=== PATIENT | female | born 1990 | race Two or more races ===

== ENCOUNTER 2021-05-23 07:10 | Observation (INO) | payer BC, MEDICAID ==
[2021-05-23] MEDS ORDERED: PRENCAP87 OR (09:01)
== END 2021-05-23 09:55 | disposition home or self-care (01) ==
LOC: LDRP 08:07
PROVIDERS: ADMIT Obstetrics & Gynecology; ATTEND Obstetrics & Gynecology
DX: O40.3XX0 Polyhydramnios, third trimester, not applicable or unspecified (principal); Z3A.36 36 weeks gestation of pregnancy
CPT/HCPCS: 59025; 76818; 81002; 82948; G0378; G0379

== ENCOUNTER 2021-05-30 08:35 | Observation (INO) | payer MEDICAID ==
[~2021-05-30] VITALS: Ht 154.9 cm; Wt 113.4 kg
[~2021-05-30 08:35] MED LIST: PRENCAP87 OR
== END 2021-05-30 09:38 | disposition home or self-care (01) ==
LOC: LDRP 08:35
PROVIDERS: ADMIT Obstetrics & Gynecology; ATTEND Obstetrics & Gynecology
DX: O40.3XX0 Polyhydramnios, third trimester, not applicable or unspecified (principal); Z3A.37 37 weeks gestation of pregnancy
CPT/HCPCS: 59025; 76818; 81002; G0378; G0379

== ENCOUNTER 2021-06-02 09:00 | Observation (INO) | payer MEDICAID ==
[~2021-06-02] VITALS: Ht 154.9 cm; Wt 113.4 kg
== END 2021-06-02 10:35 | disposition home or self-care (01) ==
LOC: LDRP 09:00
PROVIDERS: ADMIT Obstetrics & Gynecology; ATTEND Obstetrics & Gynecology
DX: O40.3XX0 Polyhydramnios, third trimester, not applicable or unspecified (principal); Z3A.38 38 weeks gestation of pregnancy
CPT/HCPCS: 59025; 76818; 81002; 94760; G0378

== ENCOUNTER 2021-06-06 08:58 | Observation (INO) | payer MEDICAID | END 2021-06-06 10:10 | disposition home or self-care (01) | LOC: LDRP 08:58 | PROVIDERS: ADMIT Obstetrics & Gynecology; ATTEND Obstetrics & Gynecology | DX: O40.3XX0 Polyhydramnios, third trimester, not applicable or unspecified (principal); Z3A.38 38 weeks gestation of pregnancy | CPT/HCPCS: 59025; 76818; 81002; G0378; G0379 ==

== ENCOUNTER 2021-06-10 08:19 | Observation (INO) | payer MEDICAID ==
[~2021-06-10] VITALS: Ht 154.9 cm; Wt 113.9 kg
== END 2021-06-10 11:12 | disposition home or self-care (01) ==
LOC: LDRP 09:20
PROVIDERS: ADMIT Obstetrics & Gynecology; ATTEND Obstetrics & Gynecology
DX: O40.3XX0 Polyhydramnios, third trimester, not applicable or unspecified (principal); Z3A.39 39 weeks gestation of pregnancy
CPT/HCPCS: 59025; 76818; 81002; 94760; G0378

== ENCOUNTER 2021-06-13 07:53 | Observation (INO) | payer MEDICAID | END 2021-06-13 09:55 | disposition home or self-care (01) | LOC: LDRP 08:14 | PROVIDERS: ADMIT Obstetrics & Gynecology; ATTEND Obstetrics & Gynecology | DX: O40.3XX0 Polyhydramnios, third trimester, not applicable or unspecified (principal); Z3A.39 39 weeks gestation of pregnancy | CPT/HCPCS: 59025; 76818; 81002; G0378; G0379 ==

== ENCOUNTER 2021-06-16 08:00 | Observation (INO) | payer MEDICAID | END 2021-06-16 09:59 | disposition home or self-care (01) | LOC: LDRP 08:00 | PROVIDERS: ADMIT Obstetrics & Gynecology; ATTEND Obstetrics & Gynecology | DX: O36.8330 Maternal care for abnormalities of the fetal heart rate or rhythm, third trimester, not applicable or unspecified (principal); O48.0 Post-term pregnancy; Z3A.40 40 weeks gestation of pregnancy | CPT/HCPCS: 59025; 76818; 81002; 94760; G0378 ==

== ENCOUNTER 2021-06-18 09:20 | Observation (INO) | payer MEDICAID ==
[~2021-06-18] VITALS: Ht 157.5 cm; Wt 116.1 kg
== END 2021-06-18 10:47 | disposition home or self-care (01) ==
LOC: LDRP 09:20
PROVIDERS: ADMIT Obstetrics & Gynecology; ATTEND Obstetrics & Gynecology
DX: O48.0 Post-term pregnancy (principal); O40.3XX0 Polyhydramnios, third trimester, not applicable or unspecified; O62.9 Abnormality of forces of labor, unspecified; Z3A.40 40 weeks gestation of pregnancy
CPT/HCPCS: 59025; 76818; 81002; 94760; G0378; G0379

== ENCOUNTER 2021-06-19 01:44 | Inpatient (IN) | payer MEDICAID ==
[~2021-06-19] VITALS: Ht 154.9 cm; Wt 116.1 kg
[2021-06-19] MEDS ORDERED: DERMOPLAST 60ML BOTTLE TOP PRN (02:00)
[2021-06-19] MEDS ORDERED: PENICILLIN G POT 5MIL/D5 50ML 50 ML IV ONE (02:00)
[2021-06-19] MEDS ORDERED: WITCH HAZEL-GLYCERIN PAD TOP PRN (02:00)
[2021-06-19] MEDS ORDERED: LIDOCAINE 2%HCL (LOCAL ANESTH.) INJ 20ML MDV IJ PRN (02:00)
[2021-06-19] MEDS ORDERED: PHISODERM TOP SOLN 240ML BTL TOP PRN (02:00)
[2021-06-19] MEDS ORDERED: LACT. RINGERS/OXYTOCIN 20UNITS 500 ML IV ONE (02:00)
[2021-06-19] MEDS ORDERED: BUTORPHANOL TARTRATE 2 MG/1 ML VIAL IV PRN (02:00)
[2021-06-19] MEDS ORDERED: LACTATED RINGER'S 1,000 ML IV SCH (02:00)
[2021-06-19] MEDS ORDERED: LACT. RINGERS/OXYTOCIN 20UNITS 1,000 ML IV SCH (02:00)
[2021-06-19] MEDS ORDERED: PROMETHAZINE HCL 25 MG/ML 1ML IV PRN (02:00)
[2021-06-19 03:19] LABS: Basophils # (auto) 0 10 ^3/uL (0-0.2); Basophils % (auto) 0.5 % (0.0-2.0); Eosinophils # (auto) 0.1 10 ^3/uL (0-0.8); Eosinophils % (auto) 0.7 % (0.0-7.0); Hematocrit 37.7 % (36.0-46.0); Hemoglobin 12.6 g/dL (12.2-16.2); Lymphocytes # (auto) 1.5 10 ^3/uL (0.4-5.4); Lymphocytes % (auto) 17.4 % (10.0-50.0); Mean Corpuscular Hemoglobin 28.1 pg (28.0-32.0); Mean Corpuscular Hgb Conc. 33.3 g/dL (32.0-36.0); Mean Corpuscular Volume 84.2 fL (80.0-100.0); Monocytes # (auto) 0.6 10 ^3/uL (0-1.3); Monocytes % (auto) 6.7 % (0.0-12.0); Neutrophils # (auto) 6.4 10 ^3/uL (1.6-8.6); Neutrophils % (auto) 74.7 % (37.0-80.0); Nucleated Red Blood Cells % 0.1 %; Red Blood Cells 4.48 10^6/uL (4.0-5.20); Red Cell Distribution Width 13.9 % (11.8-14.3); White Blood Cell 8.6 10^3/uL (4.4-10.8)
[2021-06-19 03:25] LABS: Albumin 2.6 g/dL (3.4-5.0); Calcium 8.5 mg/dL (8.5-10.1); Potassium 3.9 mmol/L (3.5-5.1)
[2021-06-19 03:29] LABS: BUN/Creatinine Ratio 11.4; Bilirubin, Total 0.2 mg/dL (0.2-1.0); Total Protein 5.8 g/dL (6.4-8.2)
[2021-06-19] MEDS ORDERED: ACETAMINOPHEN 325 MG TAB PO PRN (03:30)
[2021-06-19 03:40] LABS: INR 0.89 (0.9-1.15); Partial Thromboplastin Time 24.1 sec (23.6-33.0)
[2021-06-19] MEDS: IBUPROFEN 800 MG TAB PO SCH ×4 (03:48→23:57)
[2021-06-19 04:25] VITALS: BP 137/73
[2021-06-19] MEDS ORDERED: PENICILLIN G POTASSIUM 2,500,000 UNITS in D5W 5% 50 ML IV SCH (06:00)
[2021-06-19 06:52] LABS: Urine Bacteria NONE SEEN /hpf (None Seen); Urine Blood 3+ /uL (Negative); Urine WBC 117 /hpf (0 - 5)
[2021-06-19 07:00] VITALS: BP 103/82
[2021-06-19 07:09] LABS: Amphetamine Screen, Urine NEGATIVE (NEGATIVE); Barbiturate Scree,Urine NEGATIVE (NEGATIVE); Benzodiazephine Screen, Urine NEGATIVE (NEGATIVE); Cannabinoid Screen, Urine NEGATIVE (NEGATIVE); Cocaine Screen, Urine NEGATIVE (NEGATIVE); Opiate Scree,Urine NEGATIVE (NEGATIVE); Phencyclidine Screen, Urine NEGATIVE (NEGATIVE)
[2021-06-19 11:00] VITALS: BP 109/77
[2021-06-19 15:00] VITALS: BP 110/53
[2021-06-19] MEDS: HYDROcodone-ACET 5/325MG TAB PO PRN ×2 (15:13→20:01)
[2021-06-19 19:00] VITALS: BP 115/70
[2021-06-19 23:00] VITALS: BP 116/59
[2021-06-20] MEDS: HYDROcodone-ACET 5/325MG TAB PO PRN (02:41)
[2021-06-20 02:50] VITALS: BP 111/72
[2021-06-20] MEDS: IBUPROFEN 800 MG TAB PO SCH (05:36)
[2021-06-20 07:06] LABS: RPR Non Reactive (Non Reactive)
[2021-06-20 07:15] VITALS: BP 118/73
== END 2021-06-20 09:13 | disposition home or self-care (01) | DRG 560 ==
LOC: LDRP 01:44 → OBSVTOIN 01:44 → LDRP 02:02
PROVIDERS: ADMIT Obstetrics & Gynecology; ATTEND Obstetrics & Gynecology
PROC: 10E0XZZ Delivery of Products of Conception, External Approach (ICD-10-PCS; principal; 2021-06-19)
DX: O62.3 Precipitate labor (principal); Z37.0 Single live birth; O99.824 Streptococcus B carrier state complicating childbirth; Z3A.40 40 weeks gestation of pregnancy; Z20.822 Contact with and (suspected) exposure to COVID-19
CPT/HCPCS: 36415; 59025; 59409; 80053; 80307; 81001; 81002; 85025; 85610; 85730; 86592; 86850; 86900; 86901; 87426; 94760; 96360; 96365; 96366; G0378; J2540; J2590; J7060

== ENCOUNTER → 2022-02-18 | Outpatient (CLI) | payer MEDICAID ==
[2022-02-18 08:26] LABS: Basophils # (auto) 0.1 10 ^3/uL (0-0.2); Basophils % (auto) 0.8 % (0.0-2.0); Eosinophils # (auto) 0.1 10 ^3/uL (0-0.8); Eosinophils % (auto) 0.9 % (0.0-7.0); Hematocrit 38.5 % (36.0-46.0); Hemoglobin 12.5 g/dL (12.2-16.2); Lymphocytes % (auto) 19.2 % (10.0-50.0); Mean Corpuscular Hemoglobin 27.6 pg (28.0-32.0); Mean Corpuscular Hgb Conc. 32.6 g/dL (32.0-36.0); Mean Corpuscular Volume 84.5 fL (80.0-100.0); Monocytes # (auto) 0.6 10 ^3/uL (0-1.3); Monocytes % (auto) 5.8 % (0.0-12.0); Neutrophils # (auto) 7.5 10 ^3/uL (1.6-8.6); Neutrophils % (auto) 73.3 % (37.0-80.0); Red Blood Cells 4.55 10^6/uL (4.0-5.20); Red Cell Distribution Width 13.5 % (11.8-14.3); White Blood Cell 10.2 10^3/uL (4.4-10.8)
== END | disposition home or self-care (01) ==
LOC: LAB 08:11
PROVIDERS: ATTEND Obstetrics & Gynecology
DX: O99.810 Abnormal glucose complicating pregnancy (principal); Z3A.00 Weeks of gestation of pregnancy not specified
CPT/HCPCS: 36415; 82951; 83036; 85025

== ENCOUNTER 2022-03-04 06:55 | Observation (INO) | payer MEDICAID | END 2022-03-04 14:43 | disposition home or self-care (01) | LOC: LDRP 13:06 → UNDOADMOB 13:06 → LDRP 13:40 | PROVIDERS: ADMIT Obstetrics & Gynecology; ATTEND Obstetrics & Gynecology | DX: O24.419 Gestational diabetes mellitus in pregnancy, unspecified control (principal); Z3A.29 29 weeks gestation of pregnancy | CPT/HCPCS: 59025; 76818; 81002; 82962; G0378 ==

== ENCOUNTER 2022-03-18 08:08 | Observation (INO) | payer MEDICAID ==
[2022-03-18] MEDS ORDERED: METF-370 PO (09:29)
== END 2022-03-18 09:40 | disposition home or self-care (01) ==
LOC: UNDOADMOB 08:08 → LDRP 08:08 → UNDODISOB 09:40
PROVIDERS: ADMIT Obstetrics & Gynecology; ATTEND Obstetrics & Gynecology
DX: O24.415 Gestational diabetes mellitus in pregnancy, controlled by oral hypoglycemic drugs (principal); Z3A.31 31 weeks gestation of pregnancy; Z79.84 Long term (current) use of oral hypoglycemic drugs
CPT/HCPCS: 59025; 76818; 81002; 82948; 82962; G0378

== ENCOUNTER 2022-03-25 08:17 | Observation (INO) | payer MEDICAID ==
[~2022-03-25 08:17] MED LIST changes: +METF-370 PO
== END 2022-03-25 10:11 | disposition home or self-care (01) ==
LOC: LDRP 08:17 → UNDOADMOB 08:17 → LDRP 08:46
PROVIDERS: ADMIT Obstetrics & Gynecology; ATTEND Obstetrics & Gynecology
DX: O24.419 Gestational diabetes mellitus in pregnancy, unspecified control (principal); Z3A.32 32 weeks gestation of pregnancy
CPT/HCPCS: 59025; 76818; 81002; 82948; 82962; 94760; G0378

== ENCOUNTER 2022-04-03 08:14 | Observation (INO) | payer MEDICAID | END 2022-04-03 09:45 | disposition home or self-care (01) | LOC: LDRP 08:14 → UNDOADMOB 08:14 → LDRP 08:56 | PROVIDERS: ADMIT Obstetrics & Gynecology; ATTEND Obstetrics & Gynecology | DX: O24.419 Gestational diabetes mellitus in pregnancy, unspecified control (principal); Z3A.00 Weeks of gestation of pregnancy not specified | CPT/HCPCS: 59025; 76818; 81002; 82948; 82962; 94760; G0378 ==

== ENCOUNTER 2022-04-10 08:05 | Observation (INO) | payer MEDICAID | END 2022-04-10 14:42 | disposition home or self-care (01) | LOC: UNDOADMOB 13:11 → LDRP 13:11 → UNDODISOB 14:42 | PROVIDERS: ADMIT Obstetrics & Gynecology; ATTEND Obstetrics & Gynecology | DX: O24.419 Gestational diabetes mellitus in pregnancy, unspecified control (principal); Z3A.34 34 weeks gestation of pregnancy | CPT/HCPCS: 59025; 76818; 81002; 82948; 82962; 94760; G0378 ==

== ENCOUNTER → 2022-04-15 | Outpatient (CLI) | payer MEDICAID ==
[2022-04-15 09:24] LABS: Basophils # (auto) 0.1 10 ^3/uL (0-0.2); Basophils % (auto) 0.8 % (0.0-2.0); Eosinophils # (auto) 0.1 10 ^3/uL (0-0.8); Eosinophils % (auto) 0.8 % (0.0-7.0); Hematocrit 39.3 % (36.0-46.0); Hemoglobin 12.9 g/dL (12.2-16.2); Lymphocytes # (auto) 1.4 10 ^3/uL (0.4-5.4); Lymphocytes % (auto) 14.2 % (10.0-50.0); Mean Corpuscular Hemoglobin 27.3 pg (28.0-32.0); Mean Corpuscular Hgb Conc. 32.9 g/dL (32.0-36.0); Mean Corpuscular Volume 82.9 fL (80.0-100.0); Monocytes # (auto) 0.5 10 ^3/uL (0-1.3); Monocytes % (auto) 5.3 % (0.0-12.0); Neutrophils # (auto) 7.7 10 ^3/uL (1.6-8.6); Neutrophils % (auto) 78.9 % (37.0-80.0); Red Blood Cells 4.74 10^6/uL (4.0-5.20); Red Cell Distribution Width 13.8 % (11.8-14.3); White Blood Cell 9.8 10^3/uL (4.4-10.8)
[2022-04-16 08:06] LABS: RPR Non Reactive (Non Reactive)
== END | disposition home or self-care (01) ==
LOC: LAB 09:05
PROVIDERS: ATTEND Obstetrics & Gynecology
DX: Z34.80 Encounter for supervision of other normal pregnancy, unspecified trimester (principal); Z3A.00 Weeks of gestation of pregnancy not specified
CPT/HCPCS: 36415; 85025; 86592

== ENCOUNTER 2022-04-17 08:07 | Observation (INO) | payer MEDICAID | END 2022-04-17 09:33 | disposition home or self-care (01) | LOC: UNDOADMOB 08:07 → LDRP 08:07 → UNDODISOB 09:33 | PROVIDERS: ADMIT Obstetrics & Gynecology; ATTEND Obstetrics & Gynecology | DX: O24.419 Gestational diabetes mellitus in pregnancy, unspecified control (principal); Z3A.35 35 weeks gestation of pregnancy | CPT/HCPCS: 59025; 76818; 81002; 82948; 82962; G0378 ==

== ENCOUNTER 2022-04-24 09:08 | Observation (INO) | payer MEDICAID | END 2022-04-24 16:45 | disposition home or self-care (01) | LOC: LDRP 13:05 → UNDOADMOB 13:05 → LDRP 14:28 → UNDODISOB 16:45 | PROVIDERS: ADMIT Obstetrics & Gynecology; ATTEND Obstetrics & Gynecology | DX: O24.419 Gestational diabetes mellitus in pregnancy, unspecified control (principal); Z3A.36 36 weeks gestation of pregnancy | CPT/HCPCS: 59025; 76818; 81002; 82948; G0378 ==

== ENCOUNTER 2022-04-28 13:01 | Observation (INO) | payer MEDICAID | END 2022-04-28 14:41 | disposition home or self-care (01) | LOC: LDRP 13:01 → UNDOADMOB 13:01 → LDRP 13:41 | PROVIDERS: ADMIT Obstetrics & Gynecology; ATTEND Obstetrics & Gynecology | DX: O24.419 Gestational diabetes mellitus in pregnancy, unspecified control (principal); Z3A.37 37 weeks gestation of pregnancy | CPT/HCPCS: 59025; 76818; 81002; 82962; 94760; G0378 ==

== ENCOUNTER 2022-05-01 13:06 | Observation (INO) | payer MEDICAID ==
[2022-05-01] MEDS ORDERED: GLYB2.5T9 PO (14:00)
== END 2022-05-01 14:28 | disposition home or self-care (01) ==
LOC: UNDOADMOB 13:06 → LDRP 13:06 → UNDODISOB 14:28
PROVIDERS: ADMIT Obstetrics & Gynecology; ATTEND Obstetrics & Gynecology
DX: O24.419 Gestational diabetes mellitus in pregnancy, unspecified control (principal); Z3A.37 37 weeks gestation of pregnancy
CPT/HCPCS: 59025; 76818; 81002; 82948; 82962; 94760; G0378

== ENCOUNTER 2022-05-02 06:25 | Inpatient (IN) | payer MEDICAID ==
[~2022-05-02] VITALS: Ht 154.9 cm; Wt 108.9 kg
[~2022-05-02 06:25] MED LIST changes: +GLYB2.5T9 PO
[2022-05-02] MEDS ORDERED: WITCH HAZEL-GLYCERIN PAD TOP PRN (07:00)
[2022-05-02] MEDS ORDERED: DERMOPLAST 60ML BOTTLE TOP PRN (07:00)
[2022-05-02] MEDS ORDERED: LIDOCAINE 2%HCL (LOCAL ANESTH.) INJ 10ml MDV IJ PRN (07:00)
[2022-05-02] MEDS ORDERED: PHISODERM TOP SOLN 240ML BTL TOP PRN (07:00)
[2022-05-02] MEDS ORDERED: LACT. RINGERS/OXYTOCIN 20UNITS 500 ML IV ONE ×2 (07:00→07:30)
[2022-05-02] MEDS ORDERED: BUTORPHANOL TARTRATE 2 MG/1 ML VIAL IV PRN ×2 (07:00)
[2022-05-02] MEDS ORDERED: LACTATED RINGER'S 1,000 ML IV SCH (07:00)
[2022-05-02] MEDS ORDERED: PROMETHAZINE HCL 25 MG/ML 1ML IV PRN (07:00)
[2022-05-02] MEDS ORDERED: miSOPROStol 100 mcg TAB PR PRN (07:00)
[2022-05-02] MEDS ORDERED: miSOPROStol 100 mcg TAB SL PRN (07:00)
[2022-05-02] MEDS ORDERED: METHYLERGONOVINE MALEATE 0.2 MG/ML AMP IM PRN (07:00)
[2022-05-02 07:26] LABS: Basophils # (auto) 0.1 10 ^3/uL (0-0.2); Basophils % (auto) 0.9 % (0.0-2.0); Eosinophils # (auto) 0 10 ^3/uL (0-0.8); Lymphocytes # (auto) 2.4 10 ^3/uL (0.4-5.4); Lymphocytes % (auto) 18.6 % (10.0-50.0); Monocytes # (auto) 0.8 10 ^3/uL (0-1.3); Neutrophils # (auto) 9.5 10 ^3/uL (1.6-8.6); White Blood Cell 12.8 10^3/uL (4.4-10.8)
[2022-05-02 07:28] LABS: Eosinophils % (auto) 0.2 % (0.0-7.0); Hemoglobin 13.1 g/dL (12.2-16.2); Mean Corpuscular Hemoglobin 26.9 pg (28.0-32.0); Mean Corpuscular Hgb Conc. 32.8 g/dL (32.0-36.0); Mean Corpuscular Volume 82.2 fL (80.0-100.0); Monocytes % (auto) 6.2 % (0.0-12.0); Neutrophils % (auto) 74.1 % (37.0-80.0); Nucleated Red Blood Cells % 0.1 %; Red Blood Cells 4.86 10^6/uL (4.0-5.20); Red Cell Distribution Width 14.1 % (11.8-14.3)
[2022-05-02 07:28] LABS: Urine Bacteria FEW /hpf (None Seen); Urine Blood Negative /uL (Negative); Urine Specific Gravity 1.008 (1.001-1.035); Urine WBC 8 /hpf (0 - 5)
[2022-05-02 07:38] LABS: Alcohol, Urine < 3.0 mg/dL (0-10); Amphetamine Screen, Urine NEGATIVE (NEGATIVE); Barbiturate Scree,Urine NEGATIVE (NEGATIVE); Benzodiazephine Screen, Urine NEGATIVE (NEGATIVE); Cannabinoid Screen, Urine NEGATIVE (NEGATIVE); Cocaine Screen, Urine NEGATIVE (NEGATIVE); Opiate Scree,Urine NEGATIVE (NEGATIVE); Phencyclidine Screen, Urine NEGATIVE (NEGATIVE)
[2022-05-02 07:44] LABS: INR 0.87 (0.9-1.15); Partial Thromboplastin Time 25.9 sec (24.6-33.4)
[2022-05-02] MEDS ORDERED: LACTATED RINGER'S 1,000 ML IV ONE (07:45)
[2022-05-02] MEDS ORDERED: ROPIVACAINE HCL 200 ML EPI SCH (07:45)
[2022-05-02] MEDS ORDERED: ePHEDrine SULFATE 50 MG/ML AMP IV ONE (07:45)
[2022-05-02] MEDS ORDERED: NALOXONE HCL 0.4 MG/ML VIAL IV ONE (07:45)
[2022-05-02 07:46] LABS: Albumin 2.7 g/dL (3.4-5.0); BUN/Creatinine Ratio 20.9; Calcium 8.5 mg/dL (8.5-10.1); Potassium 3.6 mmol/L (3.5-5.1)
[2022-05-02] MEDS ORDERED: LIDOCAINE 2%HCL (LOCAL ANESTH.) INJ 20ML MDV ONE (07:48)
[2022-05-02 07:49] LABS: Bilirubin, Total 0.3 mg/dL (0.2-1.0); Total Protein 6.9 g/dL (6.4-8.2)
[2022-05-02] MEDS ORDERED: HYDROcodone-ACET 10/325MG TAB PO PRN (08:15)
[2022-05-02] MEDS ORDERED: ACETAMINOPHEN 325 MG TAB PO PRN (09:30)
[2022-05-02] MEDS ORDERED: ACCU-CHEK COMFORT CURVE STRIP VI SCH (10:00)
[2022-05-02] MEDS ORDERED: RHO (D) IMMUNE GLOBULIN 300 MCG INJ IM ONE (10:15)
[2022-05-02 14:53] VITALS: BP 113/61
[2022-05-02] MEDS: HYDROcodone-ACET 10/325MG TAB PO PRN ×2 (17:52→23:45)
[2022-05-02 19:00] VITALS: BP 119/58
[2022-05-02] MEDS: IBUPROFEN 600 MG TAB PO PRN (22:15)
[2022-05-02 23:30] VITALS: BP 105/58
[2022-05-03 03:30] VITALS: BP 96/51
[2022-05-03] MEDS ORDERED: ACCU-CHEK COMFORT CURVE STRIP VI SCH (06:00)
[2022-05-03] MEDS: IBUPROFEN 600 MG TAB PO PRN (06:00)
[2022-05-03 06:06] LABS: RPR Non Reactive (Non Reactive)
[2022-05-03 07:05] VITALS: BP 97/77
[2022-05-03] MEDS: HYDROcodone-ACET 10/325MG TAB PO PRN (10:02)
[2022-05-03 11:00] VITALS: BP 118/68
[2022-05-03 12:20] VITALS: BP 118/68
== END 2022-05-03 13:05 | disposition home or self-care (01) | DRG 560 ==
LOC: LDRP 06:25 → OBSVTOIN 06:46 → LDRP 15:24
PROVIDERS: ADMIT Obstetrics & Gynecology; ATTEND Obstetrics & Gynecology
PROC: 10E0XZZ Delivery of Products of Conception, External Approach (ICD-10-PCS; principal; 2022-05-02)
PROC: 0KQM0ZZ Repair Perineum Muscle, Open Approach (ICD-10-PCS; 2022-05-02)
PROC: 3E0234Z Introduction of Serum, Toxoid and Vaccine into Muscle, Percutaneous Approach (ICD-10-PCS; 2022-05-03)
DX: O24.429 Gestational diabetes mellitus in childbirth, unspecified control (principal); Z37.0 Single live birth; O26.893 Other specified pregnancy related conditions, third trimester; O70.1 Second degree perineal laceration during delivery; Z3A.38 38 weeks gestation of pregnancy; Z67.41 Type O blood, Rh negative; Z20.822 Contact with and (suspected) exposure to COVID-19
CPT/HCPCS: 36415; 59025; 59409; 80053; 80307; 81001; 81002; 82962; 85025; 85460; 85610; 85730; 86592; 86850; 86900; 86901; 87426; 90384; 94760; 94762; 96360; 96361; 96365; 96366; 96372; G0378; J2590

== ENCOUNTER → 2022-12-28 | Outpatient (CLI) | payer MEDICAID ==
[2022-12-28 14:00] LABS: Albumin 3.6 g/dL (3.4-5.0); Bilirubin, Direct < 0.1 mg/dL (0-0.2)
[2022-12-28 14:03] LABS: Alanine Aminotransferase 25 U/L (13-56); Alkaline Phosphatase 118 U/L (45-117); Aspartate Aminotransferase 14 U/L (15-37); Bilirubin, Total 0.2 mg/dL (0.2-1.0); Total Protein 7.2 g/dL (6.4-8.2)
[2022-12-28 21:54] LABS: Hepatitis A Ab IgM Negative; Hepatitis B Core IgM Negative; Hepatitis C Antibody Negative (Negative)
== END | disposition home or self-care (01) ==
LOC: LAB 12:31
DX: R47.01 Aphasia (principal)
CPT/HCPCS: 36415; 80076; 86705; 86709; 86803; 87340

== ENCOUNTER → 2023-06-15 | Outpatient (CLI) | payer MEDICAID | END | disposition home or self-care (01) | LOC: LAB 09:30 | PROVIDERS: ATTEND Obstetrics & Gynecology | DX: O03.9 Complete or unspecified spontaneous abortion without complication (principal); Z3A.00 Weeks of gestation of pregnancy not specified | CPT/HCPCS: 36415; 84702 ==

== ENCOUNTER → 2023-06-30 | Outpatient (CLI) | payer MEDICAID | END | disposition home or self-care (01) | LOC: LAB 11:10 | PROVIDERS: ATTEND Obstetrics & Gynecology | DX: O03.9 Complete or unspecified spontaneous abortion without complication (principal); Z3A.00 Weeks of gestation of pregnancy not specified | CPT/HCPCS: 86850; 86900; 86901 ==

== ENCOUNTER 2024-06-20 08:45 | Inpatient (IN) | payer BC, MEDICAID ==
[~2024-06-20] VITALS: Ht 154.9 cm; Wt 105.7 kg
--- NOTE | 2024-06-20 11:12 | DVH ---
Procedure: US BIOPHYSICAL PROFILE 06/20/2024 10:26 AM Indication: Particulate seen in fluid on ultrasound in OB office Comparison: None Technique: Sonogram of gravid uterus utilizing grayscale and color techniques. FINDINGS: Single living intrauterine gestation. Presentation: Cephalic Placenta: Fundal, grade 2 without previa or abruption heart rate: 148 bpm MIGUE: 20.3 cm, DVP: 7.6 cm, Floating debris is noted in the amniotic fluid Maternal cervix: Not visualized Biophysical Profile: breathing score: 2 movement score: 2 tone: 2 Quantitative MIGUE score: 2 Total score: 8/8 IMPRESSION: 1. Single living as above. 2. Biophysical profile score: 8/8. 3. Nonspecific floating echogenic debris in the amniotic fluid that may represent hemorrhagic materia l, meconium contamination, vernix caseosa or other etiologies.
[2024-06-20] MEDS ORDERED: LACTATED RINGER'S 1,000 ML IV SCH (11:30)
[2024-06-20] MEDS: ePHEDrine SULFATE 50 MG/ML AMP IV ONE (11:30)
[2024-06-20] MEDS: NALOXONE HCL 0.4 MG/ML VIAL IV ONE (11:30)
[2024-06-20] MEDS ORDERED: LIDOCAINE 2%HCL (LOCAL ANESTH.) INJ 20ML MDV IJ PRN (11:30)
[2024-06-20] MEDS ORDERED: LACTATED RINGER'S 1,000 ML IV ONE (11:30)
[2024-06-20] MEDS: ROPIVACAINE HCL 200 ML ONE (11:35)
[2024-06-20 12:02] LABS: Basophils # (auto) 0.1 10 ^3/uL (0-0.2); Basophils % (auto) 0.6 % (0.0-2.0); Eosinophils # (auto) 0 10 ^3/uL (0-0.8); Eosinophils % (auto) 0.3 % (0.0-7.0); Hematocrit 39.1 % (36.0-46.0); Hemoglobin 13.2 g/dL (12.2-16.2); Lymphocytes % (auto) 15.6 % (10.0-50.0); Mean Corpuscular Hemoglobin 28.3 pg (28.0-32.0); Mean Corpuscular Hgb Conc. 33.8 g/dL (32.0-36.0); Mean Corpuscular Volume 83.7 fL (80.0-100.0); Monocytes # (auto) 0.6 10 ^3/uL (0-1.3); Monocytes % (auto) 4.5 % (0.0-12.0); Neutrophils # (auto) 9.9 10 ^3/uL (1.6-8.6); Platelet Count (auto) 202 10^3/uL (140-450); Red Blood Cells 4.68 10^6/uL (4.0-5.20); Red Cell Distribution Width 13.9 % (11.8-14.3); White Blood Cell 12.5 10^3/uL (4.4-10.8)
[2024-06-20] MEDS: LACT. RINGERS/OXYTOCIN 20UNITS 500 ML IV ONE ×2 (12:11→13:07)
[2024-06-20 12:19] LABS: Albumin 3.9 g/dL (3.2-4.8); Anion Gap 7 (5-15); BUN/Creatinine Ratio 7.5 (10.0-20.0); Calcium 9.2 mg/dL (8.7-10.4); Carbon Dioxide 23 mmol/L (20-31); Glucose 82 mg/dL (74-106); Potassium 3.8 mmol/L (3.5-5.1); Sodium 138 mmol/L (136-145)
[2024-06-20 12:20] LABS: Bilirubin, Total 0.4 mg/dL (0.2-1.0); Total Protein 6.6 g/dL (5.7-8.2)
[2024-06-20 12:22] LABS: INR 0.91 (0.9-1.15); Partial Thromboplastin Time 26.2 SEC (24.5-34.5); Prothrombin Time 9.7 sec (9.3-11.8)
[2024-06-20] MEDS ORDERED: ACETAMINOPHEN 325 MG TAB PO PRN (12:30)
[2024-06-20] MEDS ORDERED: ONDANSETRON ODT 4 MG TAB PO PRN (12:30)
[2024-06-20 12:32] LABS: Alanine Aminotransferase < 9 U/L (7-40); Alkaline Phosphatase 196 U/L (46-116); Aspartate Aminotransferase 10 U/L (13-40); Blood Urea Nitrogen 5 mg/dL (9-23); Chloride 108 mmol/L (98-107)
[2024-06-20] MEDS: IBUPROFEN 800 MG TAB PO SCH (14:08)
--- NOTE | 2024-06-20 15:33 | LDN2 ---
Labor and Delivery Note Date 06/20/24 Age 33 5 Para 5 now AB 0 EDC 06/25/24 EGA 39.2wks Diagnosis active labor, SROM with thick meconium then (medical delivery technician) Vaginal Delivery: VTX Vacuum Assisted: No Placenta: Spontaneous Sex: Female Weight 7lbs 11oz Apgars 8/9 Nuchal Cord Present: No Nuchal Cord Transected: No Amniotic Fluid: Meconium Stained, Thick Anesthesia local Episiotomy: No Extension: No Lacerations: Yes (first degree perineal) Repaired with 3-0 vicryl EBL QBL 200ml Complications none Conditions stable Winder [employer] [facility] Delivery Summary At 1205 this 33yo now delivered a viable Female infant by w/ APGARS 8/9. medical delivery technician, DORA presentation. CNM arrived to bedside with infant skin to skin on pts chest and placenta not delivered. CNM delivered placenta spontaneously, Briceno, intact, marginal cord insertion noted, 3-vessel cord. Pitocin IV bolus started. Cord clamped and cut after pulsation ceased. Cord blood sent. Placenta sent to pathology. Patient had local anesthesia. Cervix/vagina inspected (intact) and first degree perineal laceration present which was repaired with 3-0 vicryl suture. Fundus at U, firm, midline, and light lochia. QBL 200ml. VSS. Count correct x2. Patient to care and baby to couplet care, both stable. VICKEY MOODY CNM Jun 20, 2024 15:33
--- NOTE | 2024-06-20 15:33 | DVHHP2 ---
OB CC & HPI Date Date of Admission: Jun 20, 2024 Patient Identification: : 6 Para: 5 EDC: Jun 25, 2024 EGA: 39.2wks Chief Complaints: Reason for admission: active labor History of Present Complaints 33yo IUP@39.2wks presents in active labor. Pt reports irregular UCs that started this morning. Denies LOF/VB/CASTILLO/vision changes/RUQ pain. Endorses +FM. PNC: Routine PNC at [facility] [place] [facility], adequate visits, PNC uncomplicated. GTT wnl, dating based on 9wk sono not c/w LMP, GBS negative. OB hx: x4, uncomplicated and SABx1 Past Medical History Cardiac: No pertinent Hx Pulmonary: No pertinent Hx Central Nervous System: No pertinent Hx GI: No pertinent Hx Hemotology/Oncology: No pertinent Hx Hepatobiliary: No pertinent Hx Psychiatric: No pertinent Hx Musculoskeletal: No pertinent Hx Rheumotologic: No pertinent Hx Infectious Disease: No peritnent Hx ENT: No pertinent Hx Renal/: No pertinent Hx Endocrine: No pertinent Hx Dermatology: No pertinent Hx Past Surgical History: No pertinent Hx OB History OB History Care: Good Care Ultrasounds: Normal mid trimester US Obstetrical Complications: None Medical Complications: None Allergies: Coded Allergies: NO KNOWN ALLERGIES (Unverified , 06/18/21) Allergies NKDA Home Meds Reported Medications Vit W/ Ferrous Fumara ( MULTI +DHA) +Dha Cap, 1 OR, CAP 05/23/21 Discontinued Reported Medications Glyburide (Micronase) 2.5 Mg Tb, 1 TAB PO DAILY, #30 TAB 5 Refills 05/01/22 Metformin Hydrochloride (Metformin Hcl) 500 Mg Tab, 2000 MG PO DAILY for 30 D ays, MG 03/18/22 Home Meds PNV Current Medications Current Medications Medications (Trade) Dose Ordered Sig/Kitty Route PRN Reason Start Time Stop Time Status Last Admin Lactated Ringer's 1,000 ml @ 125 mls/hr Q8H IV 06/20/24 11:30 Witkarla Darlin (Tucks) 1 pad PRN PRN TOP PERINEAL AREA DISCOMFORT 06/20/24 11:30 Sodium Lauryl Sulfate (Phisoderm) 240 ml PRN PRN TOP PERINEAL AREA DISCOMFORT 06/20/24 11:30 Benzocaine (Dermoplast) 1 applic PRN PRN TOP PERINEAL AREA DISCOMFORT 06/20/24 11:30 Lidocaine HCl (Xylocaine) 20 ml ONCE PRN IJ PERINEAL AREA DISCOMFORT 06/20/24 11:30 Acetaminophen (Tylenol Tablet) 650 mg Q4HP PRN PO MILD PAIN (1-3 PAIN SCALE) 06/20/24 12:30 Ondansetron HCl (Zofran Po) 4 mg Q4HPRN PRN PO NAUSEA / VOMITING 06/20/24 12:30 Docusate Sodium (Colace Capsule) 200 mg HS PO 06/20/24 22:00 Ibuprofen (Motrin Tablet) 800 mg Q6HR PO 06/20/24 18:00 06/20/24 14:08 Acetaminophen/ Hydrocodone Bitart (Verdigre 5/325MG Tab) 1 tab Q4HPRN PRN PO MODERATE PAIN (4-6 PAIN SCALE) 06/20/24 12:30 Family & Social History Family/Social History Past Family/Social History: denies Blood Type: O- Rubella: immune RPR/VDRL: Negative GBS Status: Negative HBsAG: Negative Review of Systems Constitutional: No symptom reported Ears, Nose, & Throat: No symptom reported Eyes: No symptom reported Pulmonary/Respiratory: No symptom reported Cardiovascular: No symptom reported Gastrointestinal: No symptom reported Genitourinary: No symptom reported Musculoskeletal: No symptom reported Skin: No symptom reported Psychiatric: No symptom reported Endocrine: No symptom reported Hemotologic/Lymphatic: No symptom reported OB Admission Exam Physical Exam Vitals: VSS, see chart HEENT: TMs Normal, Fontanelles Normal, Nasal Mucosa Normal, Eyes non-injected, Oropharynx Normal, PERRLA, Moist Membranes, EOMI Heart: Rhythm Normal Lungs: Clear Abdomen: Gravid Extremities: Normal Reflexes: Normal Pelvic Exam: SVE by RN: 5/90/0, intact, vertex Heart Rate: 140's Accelerations: Accelerations Present Decelerations: No Decelerations Malted Milk Mixer Variability: Average (6-25) Contractions on Admission: < 5 Minutes Apart Intensity: Moderate OB Plan Plan Admitting Diagnosis: Active Labor Plan: Expectant Management Other Plan: A: 33yo IUP@39.2wks Active labor Category I EFM Intact Membranes GBS negative P: Admit to L&D Informed consent obtained Expectant management for now due to frequent UCs monitoring per order Routine labs ordered Pain mgmt PRN Frequent position changes in and out of bed encouraged Limit SVE unless necessary Intrauterine resuscitation PRN Anticipate CNM will consult with VICKEY Joy CNM Jun 20, 2024 15:33
[2024-06-20 19:00] VITALS: BP 124/71; PULSE 97; RESP 16; TEMP 97.2; O2SAT 97
[2024-06-20] MEDS: HYDROcodone-ACET 5/325MG TAB PO PRN (19:09)
[2024-06-20 19:10] VITALS: PULSE 97; RESP 18; O2SAT 97
[2024-06-20] MEDS: DOCUSATE SOD 100 MG CAP PO SCH (22:25)
[2024-06-20 22:39] VITALS: BP 111/67; PULSE 74; RESP 16; TEMP 97.9; O2SAT 98
--- NOTE | 2024-06-21 01:25 | DVHPN2 ---
Progress Note Date Seen: Jun 21, 2024 Subjective S: bleeding is less, eating food without issues, denies lightheaded/dizziness, pain well controlled with oral medications, no concerns with urinating, passing flatus, no BM yet, ambulating well, well vital signs Vital Sign Date Time Temp Pulse Resp B/P (MAP) Pulse Ox O2 Delivery O2 Flow Rate FiO2 06/20/24 22:39 97.9 74 16 111/67 (82) 98 97.9 06/20/24 19:10 Room Air Total Intake and Output 06/20/24 06/20/24 06/21/24 15:00 23:00 07:00 Output Total 600 ml 1000 ml Balance -600 ml -1000 ml medications Current Medications Medications Dose Ordered Sig/Kitty Route Start Time Stop Time Status Last Admin Dose Admin Danielle Perryel 1 pad PRN PRN TOP 06/20/24 11:30 Sodium Lauryl Sulfate 240 ml PRN PRN TOP 06/20/24 11:30 Benzocaine 1 applic PRN PRN TOP 06/20/24 11:30 Acetaminophen 650 mg Q4HP PRN PO 06/20/24 12:30 Ondansetron HCl 4 mg Q4HPRN PRN PO 06/20/24 12:30 Docusate Sodium 200 mg HS PO 06/20/24 22:00 06/20/24 22:25 200 MG Ibuprofen 800 mg Q6HR PO 06/20/24 18:00 06/20/24 22:25 800 MG Acetaminophen/ Hydrocodone Bitart 1 tab Q4HPRN PRN PO 06/20/24 12:30 06/20/24 19:09 1 TAB laboratory and microbiology Laboratory Tests 06/20/24 11:46 Test 06/20/24 11:46 Range/Units Serum Glucose 82 74-106 mg/dL Objective O: VSS Chest: heart sounds normal and lung sounds clear bilaterally Abd: soft, non-tender, fundus at U/firm/midline, active bowel sounds, no rebound or guarding Perineum: sutures intact, edges well approximated, no erythema/edema noted Ext: Non-tender, No edema, 2+ BLE DTRs Lochia: minimal See lab results Problems(with codes): (1) (normal spontaneous vaginal delivery) (2) First degree perineal laceration during delivery Assessment/Plan A: 33yo now PPD#1 s/p Rh Negative Rubella Immune Pain control with PO medications Bowel regimen P: D/C home today Rx sent to pharmacy precautions and preeclampsia warning signs reviewed Pt has appt today 06/21/24 at 1400 at [facility] OB office to receive PP Rhogam IM injection since inpatient blood type result is pending. F/U with [facility] OB office in 2 weeks Plan discussed with: Patient, Spouse VICKEY MOODY CNM Jun 21, 2024 01:25
--- NOTE | 2024-06-21 01:29 | DVHDS2 ---
Obstetrics Discharge Summary Obstetrics Discharge Summary Date of Admission: Jun 20, 2024 Date of Discharge: Jun 21, 2024 Reason For Admission: Onset of Labor Procedures: NST, Ultrasound Intrapartum Procedures: Spontaneous vaginal deliv Procedures: RHo (D) Ig (Rhogam will be given outpatient), Hct/date: (06/21/24), Hgb/date: (06/21/24) Operative Complicat: Laceration (first degree Perineal, repaired) Discharge Diagnosis: Term -Delivered Discharge Information: Activity (as tolerated, no heavy lifting and nothing in the vagina for 6 weeks), Diet (Routine), Medications (Rx sent), Instructions (Routine), Discharge to (Home), Accompanied by (partner), Discarge date (06/21/24) VICKEY MOODY CNM Jun 21, 2024 01:29
[2024-06-21 03:00] VITALS: BP 111/66; PULSE 74; RESP 16; TEMP 97.7; O2SAT 97
[2024-06-21] MEDS ORDERED: RHO (D) IMMUNE GLOBULIN 300 MCG INJ IM ONE (07:30)
[2024-06-21] MEDS: PHISODERM TOP SOLN 240ML BTL TOP PRN (07:31)
[2024-06-21] MEDS: WITCH HAZEL-GLYCERIN PAD TOP PRN (07:31)
[2024-06-21] MEDS: DERMOPLAST 60ML BOTTLE TOP PRN (07:31)
[2024-06-21] MEDS: IBUPROFEN 800 MG TAB PO PRN (07:47)
[2024-06-21 08:06] LABS: RPR Non Reactive (Non Reactive)
[2024-06-21 08:46] LABS: Basophils # (auto) 0 10 ^3/uL (0-0.2); Basophils % (auto) 0.4 % (0.0-2.0); Eosinophils # (auto) 0.1 10 ^3/uL (0-0.8); Eosinophils % (auto) 0.7 % (0.0-7.0); Hemoglobin 12.1 g/dL (12.2-16.2); Lymphocytes # (auto) 0.9 10 ^3/uL (0.4-5.4); Mean Corpuscular Hemoglobin 27.8 pg (28.0-32.0); Mean Corpuscular Hgb Conc. 32.8 g/dL (32.0-36.0); Mean Corpuscular Volume 84.8 fL (80.0-100.0); Monocytes # (auto) 0.5 10 ^3/uL (0-1.3); Monocytes % (auto) 5.6 % (0.0-12.0); Neutrophils # (auto) 7.8 10 ^3/uL (1.6-8.6); Neutrophils % (auto) 83.3 % (37.0-80.0); Platelet Count (auto) 186 10^3/uL (140-450); Red Blood Cells 4.36 10^6/uL (4.0-5.20); Red Cell Distribution Width 13.6 % (11.8-14.3); White Blood Cell 9.4 10^3/uL (4.4-10.8)
[2024-06-21 10:41] VITALS: BP 120/58; PULSE 72; RESP 15; TEMP 97.7; O2SAT 96
[2024-06-21] MEDS ORDERED: DOCU-265 PO (11:23)
[2024-06-21] MEDS ORDERED: IBUP-1455 PO (11:23)
== END 2024-06-21 13:55 | disposition home or self-care (01) | DRG 807 ==
LOC: LDRP 08:45 → OBSVTOIN 11:22
PROVIDERS: ADMIT Obstetrics & Gynecology; ATTEND Obstetrics & Gynecology
PROC: 10E0XZZ Delivery of Products of Conception, External Approach (ICD-10-PCS; principal; 2024-06-20)
PROC: 0HQ9XZZ Repair Perineum Skin, External Approach (ICD-10-PCS; 2024-06-20)
DX: O77.0 Labor and delivery complicated by meconium in amniotic fluid (principal); Z37.0 Single live birth; Z3A.39 39 weeks gestation of pregnancy; O70.0 First degree perineal laceration during delivery
CPT/HCPCS: 36415; 59025; 59409; 76818; 80053; 81002; 85025; 85610; 85730; 86592; 86780; 86803; 86850; 86900; 86901; 86905; 86906; 94760; 96360; 96361; 96365; 96366; G0378; J2590